=== PATIENT | male | born 1950 | race Caucasian/White ===

== ENCOUNTER 2020-10-17 08:19 | Outpatient (CLI) | payer OTHER, SELFPAY ==
[2020-10-17 13:19] LABS: Hemoglobin A1C 6.1 % (<5.7)
[2020-10-17 13:33] LABS: Creatinine Urine 114.4 mg/dL
[2020-10-17 13:37] LABS: MALB Creatinine Ratio < 5.2 mg/g (0-30); Microalbumin Urine Random < 6.0 mg/L (0-16.7)
== END 2020-10-17 08:20 | disposition home or self-care (01) ==
PROVIDERS: PCP Emergency Medicine; Visit Provider Emergency Medicine
DX: E11.9 Type 2 diabetes mellitus without complications (principal)
CPT/HCPCS: 36415; 82043; 83036

== ENCOUNTER 2023-03-24 03:07 | Day surgery (SDC) | payer OTHER, SELFPAY ==
[2023-03-10 09:21] VITALS: BMI 24.4
--- NOTE | 2023-03-20 11:06 | SUR.PREOP ---
Patient called regarding upcoming procedure. Message left on patient's voicemail regarding preop instructions, appointment times, and procedure prep.
[2023-03-24 06:49] VITALS: BP 126/72; PULSE 76; RESP 20; TEMP 35.9; O2SAT 98; BMI 25.0
[2023-03-24] MEDS: LACTATED RINGERS 1,000 ML 150 ML IV CONT (07:00)
[2023-03-24 07:07] LABS: Glucose Point of Care 122 mg/dl (65-105)
--- NOTE | 2023-03-24 08:02 | WPDANESEPPF ---
Anes - Initial Pre Proc Eval Procedure: Operation Date: 03/24/23 08:00 Proposed Procedures p Screening Colonoscopy - Trey Ocampo MD Date/Time: 03/24/23 08:02 Surgeon: Trey Ocampo MD Pre Op Diagnosis: neoplasm screening Patient Data Age: 73 Gender: M Height: 1.8 m Weight: 81.6 kg Last Vital Signs Temp 96.6 F L 03/24/23 06:49 Pulse 76 03/24/23 06:49 Resp 20 03/24/23 06:49 BP 126/72 03/24/23 06:49 Pulse Ox 98 03/24/23 06:49 O2 Del Method Room Air 03/24/23 06:49 Allergies Allergy/AdvReac Type Severity Reaction Status Date / Time No Known Allergies Allergy Verified 03/24/23 06:47 Home Medications Medication Instructions Recorded Confirmed Type ascorbic acid (vitamin C) 1,000 mg 1 gm PO DAILY 04/19/19 03/10/23 History tablet niacin 1,000 mg tablet,extended See Rx Instructions .Route .COMPLEX 04/19/19 03/10/23 History release omega-3 fatty acids 1,000 mg 1,000 mg PO DAILY 04/19/19 03/10/23 History capsule (Fish Oil Concentrate) allopurinol 300 mg tablet See Rx Instructions .Route 01/08/23 03/10/23 Rx .COMPLEX #90 tabs glipizide 2.5 mg tablet, extended See Rx Instructions .Route 01/08/23 03/10/23 Rx release 24 hr .COMPLEX #90 tabs tamsulosin 0.4 mg capsule See Rx Instructions .Route 01/08/23 03/10/23 Rx .COMPLEX #90 caps pantoprazole 40 mg tablet,delayed 40 mg PO DAILY #90 tabs 03/04/23 03/10/23 Rx release (Protonix) finasteride 5 mg tablet 5 mg PO DAILY 03/10/23 03/10/23 History multivit with minerals-iron 18 1 tablet PO DAILY 03/10/23 03/10/23 History mg-folic ac 400 mcg-vit K 25 mcg tablet (Adults Multivitamin) Laboratory Tests 03/24/23 07:03 POC Capillary Glucose 122 H mg/dl (65-105) Patient hx anesthesia problems: none Family hx anesthesia problems: none Results Review: All pre-operative results and documents have been reviewed as part of the pre-operative evaluation. [facility] Past Medical History Medical History HLD (hyperlipidemia) Skin lesion Type 2 diabetes mellitus without complications Family History Family History Mother Family history of primary malignant neoplasm of liver, Onset Age: 79 Social History Social History Smoking status: Never smoker Alcohol intake: current Alcohol use details: rare Substance use: never Substance use type: does not use Lack of Transportation: No Lack of Food: Never True Current Housing: I Have Housing Concerned About Future Housing: No Difficulty Paying Gas/Electric Bills: No Difficulty Paying for Meds: No Currently Unemployed: No Education: Bachelor's Degree Difficulty w/ Childcare or Family Care: No Living arrangements: with family Spiritual care concerns: No Anes - Eval Final PreProcedure Day of Procedure 03/24/23 08:02 Patient weight: normal Heart: regular rate and rhythm Lungs: clear to auscultation Airway: Mallampati scale class II Neurological: alert and oriented Last oral intake: >/= 8 hours ASA classification: II Emergent: no Anesthetic plan: proceed Anesthesia type and monitoring: general GIVS and standard monitoring Results Review: All pre-operative results and documents have been reviewed as part of the pre-operative evaluation. Informed Consent: The patient's anesthetic plan and its attendant risks and benefits were discussed with the patient/family/POA. Questions were solicited and answers provided to the satisfaction of the patient/family/POA.
--- NOTE | 2023-03-24 08:23 | PM.HPGS ---
History of Present Illness History of Present Illness Consent: Risks, benefits, and alternatives have been discussed and questions answered. Patient agrees to proceed with procedure. Chief complaint: neoplasm screening Narrative: Willis Newberry is a 73 year old male Presents for screening colonoscopy. Patient's current weight appetite and bowel movements are normal. Patient denies abdominal pain. He has had no bleeding. Family history noncontributory. Previous colonoscopy 10 or 11 years ago was unremarkable. Review of Systems Review of Systems: Review of systems noncontributory. [facility] Past Medical History Medical History HLD (hyperlipidemia) Skin lesion Type 2 diabetes mellitus without complications Family History Family History Mother Family history of primary malignant neoplasm of liver, Onset Age: 79 Social History Social History Smoking status: Never smoker Alcohol intake: current Alcohol use details: rare Substance use: never Substance use type: does not use Lack of Transportation: No Lack of Food: Never True Current Housing: I Have Housing Concerned About Future Housing: No Difficulty Paying Gas/Electric Bills: No Difficulty Paying for Meds: No Currently Unemployed: No Education: Bachelor's Degree Difficulty w/ Childcare or Family Care: No Living arrangements: with family Spiritual care concerns: No Meds Home Medications and Allergies Home Medications Medication Instructions Recorded Confirmed Type ascorbic acid (vitamin C) 1,000 mg 1 gm PO DAILY 04/19/19 03/10/23 History tablet niacin 1,000 mg tablet,extended See Rx Instructions .Route .COMPLEX 04/19/19 03/10/23 History release omega-3 fatty acids 1,000 mg 1,000 mg PO DAILY 04/19/19 03/10/23 History capsule (Fish Oil Concentrate) allopurinol 300 mg tablet See Rx Instructions .Route 01/08/23 03/10/23 Rx .COMPLEX #90 tabs glipizide 2.5 mg tablet, extended See Rx Instructions .Route 01/08/23 03/10/23 Rx release 24 hr .COMPLEX #90 tabs tamsulosin 0.4 mg capsule See Rx Instructions .Route 01/08/23 03/10/23 Rx .COMPLEX #90 caps pantoprazole 40 mg tablet,delayed 40 mg PO DAILY #90 tabs 03/04/23 03/10/23 Rx release (Protonix) finasteride 5 mg tablet 5 mg PO DAILY 03/10/23 03/10/23 History multivit with minerals-iron 18 1 tablet PO DAILY 03/10/23 03/10/23 History mg-folic ac 400 mcg-vit K 25 mcg tablet (Adults Multivitamin) Allergies Allergy/AdvReac Type Severity Reaction Status Date / Time No Known Allergies Allergy Verified 03/24/23 06:47 Vital Signs Vital Signs - 24 hr 03/24/23 06:49 Temperature 96.6 F L Pulse Rate 76 Respiratory Rate 20 Blood Pressure 126/72 Pulse Oximetry 98 Oxygen Delivery Room Air Exam Narrative: Physical exam reveals patient to be alert. Vital signs stable. HEENT exam is unremarkable. Patient is anicteric. Lungs are clear to auscultation and percussion. Heart is without murmur or extra sounds. Abdomen bowel sounds are present soft nontender with no organomegaly. Digital external rectal exam normal. Assessment and Plan Assessment and plan (1) Encounter for screening colonoscopy: Code(s): Z12.11 - Encounter for screening for malignant neoplasm of colon Status: Acute Assessment and Plan: Patient appears at average risk for colon polyps. Plan for screening colonoscopy today and consider this a 10 year intervals.
[2023-03-24 09:00] VITALS: BP 126/86; PULSE 71; RESP 20; O2SAT 97
[2023-03-24 09:10] VITALS: BP 112/63; PULSE 64; RESP 14; O2SAT 96
[2023-03-24 09:20] VITALS: BP 116/69; PULSE 68; RESP 16; O2SAT 96
== END 2023-03-24 09:27 | disposition home or self-care (01) ==
PROVIDERS: PCP Emergency Medicine; Visit Provider Internal Medicine Gastroenterology
PROC: 0DJD8ZZ Inspection of Lower Intestinal Tract, Via Natural or Artificial Opening Endoscopic (ICD-10-PCS; CPT 45378; principal; 2023-03-24 08:00)
DX: Z12.11 Encounter for screening for malignant neoplasm of colon (principal); D12.3 Benign neoplasm of transverse colon; K64.8 Other hemorrhoids; K57.30 Diverticulosis of large intestine without perforation or abscess without bleeding; E78.5 Hyperlipidemia, unspecified; E11.9 Type 2 diabetes mellitus without complications; Z79.84 Long term (current) use of oral hypoglycemic drugs; Z80.0 Family history of malignant neoplasm of digestive organs
CPT/HCPCS: 45385; 82948; 88305; J2704; J7120

== ENCOUNTER 2024-09-23 20:26 | Emergency (ER) | payer OTHER, SELFPAY ==
--- NOTE | ~2024-09-23 | XR_ITS ---
EXAMINATION: XR chest 1V Exam Date/Time: 09/23/2024 20:54 CDT HISTORY: weakness Comparison: None. RESULT: Lines, tubes, and devices: None. Lungs and pleura: Clear. Cardiomediastinal silhouette: Unremarkable. Other: No acute osseous or upper abdominal finding. IMPRESSION: No acute cardiopulmonary process. Reviewed, dictated and finalized at location K.
--- NOTE | ~2024-09-23 | CT_ITS ---
EXAMINATION: CT abdomen pelvis w con DATE: 09/24/2024 03:16 INDICATION: Nausea. Leukocytosis. TECHNIQUE: Computed tomography (CT) of the abdomen and pelvis was performed with 100 mL Omnipaque-350 intravenous contrast. Automated exposure control and iterative reconstruction technique were employe d. The dose-length product was 406.70 mGy-cm. COMPARISON: None FINDINGS: Mild dependent atelectasis in bilateral lower lobes. Heart size is normal. No pericardial or pleural effusion. Small sliding-type hiatal hernia. Diffuse hepatic steatosis. Multiple gallstones in the dep endent aspect of the normal-appearing gallbladder with no wall thickening or pericholecystic strandin g to suggest acute cholecystitis. Spleen and bilateral adrenal glands are normal. 9 mm cystic lesion at the head of the pancreas. There is mild dilation of the main pancreatic duct with no peripancreati c stranding to suggest acute pancreatitis. There are multiple bilateral renal cysts measuring up to 4 .1 cm the left kidney. There is a high attenuation lesion at the right kidney which is equivocal for hyperdense complex proteinaceous/hemorrhagic cyst versus enhancing solid neoplasm. Moderate diverticu losis along the descending and sigmoid colon without adjacent from trace stranding to suggest diverti culitis. There is also a duodenal diverticulum posterior to the junction of the second and third port ions of the duodenum. No bowel obstruction. Normal appendix. Bladder is normal. Prostatomegaly. Bilat eral small fat-containing inguinal hernias. Mild degenerative changes in the spine and pelvis. IMPRESSION: 1. Cholelithiasis. 2. Mild dilation of the main pancreatic duct which could represent sequela of chronic pancreatitis. N o peripancreatic inflammatory stranding to suggest acute appendicitis but would correlate with lipase levels. 3. 9 mm cystic lesion at the head of the pancreas. The differential diagnosis includes pseudocyst, in traductal papillary mucinous neoplasm (IPMN), mucinous cystic neoplasm (MCN), and the less common ser ous cystadenoma and neuroendocrine tumor. 4. 4.1 cm soft tissue density right renal lesion which could represent a complex proteinaceous/hemorr hagic cyst or enhancing neoplasm. Recommend further evaluation with pre and postcontrast MRI or CT. 5. Small sliding-type hiatal hernia. 6. Diverticulosis. 7. Prostatomegaly. 8. Small bilateral fat-containing hernias. Reviewed, dictated and finalized at location A. IMPRESSION: 1. Cholelithiasis. 2. Mild dilation of the main pancreatic duct which could represent sequela of c hronic pancreatitis. No peripancreatic inflammatory stranding to suggest acute appendicitis but would correlate with lipase levels. 3. 9 mm cystic lesion at the head of the pancreas. The differential diagnosis i ncludes pseudocyst, intraductal papillary mucinous neoplasm (IPMN), mucinous cy stic neoplasm (MCN), and the less common serous cystadenoma and neuroendocrine tumor. 4. 4.1 cm soft tissue density right renal lesion which could represent a comple x proteinaceous/hemorrhagic cyst or enhancing neoplasm. Recommend further evalu ation with pre and postcontrast MRI or CT. 5. Small sliding-type hiatal hernia. 6. Diverticulosis. 7. Prostatomegaly. 8. Small bilateral fat-containing hernias.
[2024-09-23 20:27] VITALS: BP 171/72; PULSE 69; RESP 12; TEMP 36.4; O2SAT 99
--- OUTSIDE RECORDS SUMMARY | 2024-09-23 20:27 | XMS_ITS | Referral Summary ---
Author Organization [facility] Address [address] [place] [id number] Care Team Providers Care Staff Reporter Name Role Phone Paul Mcnulty MD Primary Care Provide r Encounters Date Type Department Care Team Description 07/21/2024 2:20 PM CDT Office Visit [facility] Surgery [address] [place] [address] [address] [place] [address] Fawad Bah MD BPH with obstruction/lower urinary tract symptoms (Primary Dx); Elevated PSA 07/20/2024 10:05 AM CDT Lab [facility] Lab [address] [place] [address] Elevated PSA 07/19/[address] [facility] Surgery [address] [place] [address] [place] [phone] Villalobos, Sharonda, RMA from Last 3 Months Allergies No known active allergies Medications allopurinoL (ZYLOPRIM) 300 mg tablet Take 1 tablet (300 mg total) by mouth daily 01/19/2023 Active glipiZIDE XL (GLUCOTROL XL) 2.5 mg 24 hr tablet Take 1 tablet (2.5 mg total) by mouth nightly 01/19/[address] (PROTONIX) 40 mg EC tablet Take 1 tablet (40 mg total) by mouth daily 03/04/2023 Active ketoconazole (NIZORAL) 2 % shampoo APPLY TO SCALP 3 TIMES A WEEK 09/25/2023 Active omega-3 fatty acids-fish oil 300-1,000 mg capsule Take 1 capsule (1 g total) by mouth daily Active niacin 1,000 mg tablet extended release Take by mouth nightly Active cholecalciferol (VITAMIN D-3) 2000 unit tablet Take 1 tablet (2,000 Units total) by mouth daily Active ascorbic acid (vitamin C) 1,000 mg tablet Take 1 tablet (1,000 mg total) by mouth daily Active multivitamin with iron tablet Take 1 tablet by mouth daily Active Active Problems Problem Noted Date Diagnosed Date BPH with obstruction/lower urinary tract symptom s 11/25/2023 Elevated PSA 10/15/2023 Abdominal pain 03/17/2023 Social History Tobacco Use Types Packs/Day Years Used Date Smoking Tobacco: Never Passive Smoke Exposure: Never Smokeless Tobacco: Never Tobacco Cessation:Counseling Given: Not Answered [facility] [employer] Answer Date Recorded In the past 12 months has e [employer], gas, oil, or water [employer] threatened to shut off services in your home? No 12/24/2023 Social Connection and Isolat ion Panel [NHANES] Answer Date Recorded In a typical week, how many times do you talk on the phone with family, friends, or neighbors? More than three times a week 12/24/2023 How often do you get togethe r with friends or relatives? More than three times a week 12/24/2023 How often do you attend [facility] or mu-ism services? Never 12/24/2023 Do you belong to any clubs o r organizations such as baptism groups, unions, fraternal or athletic groups, or school groups? No 12/24/2023 How often do you attend meet ings of the clubs or organizations you belong to? Never 12/24/2023 Are you , , di vorced, , never , or living with a partner? 12/24/2023 AUDIT-C Answer Date Recorded Q1: How often do you have a drink containing alcohol? Never 12/09/2023 Q2: How many drinks containi ng alcohol do you have on a typical day when you are drinking? Patient does not drink Q3: How often do you have si x or more drinks on one occasion? Never 12/09/2023 Overall Financial Resource Strain (CARDIA) Answe r Date Recorded How hard is it for you to pa y for the very basics like food, housing, medical care, and heating? Not hard at all 12/24/2023 Hunger Vital Sign Answer Date Recorded Within the past 12 months, y ou worried that your food would run out before you got the money to buy more. Never true 12/24/19 24 Within the past 12 months, t he food you bought just didn't last and you didn't have money to get more. Never true 12/24/2023 PRAPARE - Transportation Answer Date Re corded In the past 12 months, has l ack of transportation kept you from medical appointments or from getting medications? No 08/2023 In the past 12 months, has l ack of transportation kept you from meetings, work, or from getting things needed for daily living? No 12/24/2023 Housing Stability Vital Sign Answer Steven e Recorded In the last 12 months, was t here a time when you were not able to pay the mortgage or rent on time? No 12/24/2023 In the past 12 months, how m any times have you moved where you were living? 0 12/24/2023 At any time in the past 12 m [facility], were you homeless or living in a detention (including now)? No 12/24/2023 Personal Safety Answer Date Recorded Have you ever been in or are you currently in a harmful physical or emotional relationship or is someone making you feel afraid or unsafe? 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 Gender Identity Not on file Sexual Orientation Not on file Last Filed Vital Signs Vital Sign Reading Time Taken Comments Blood Pressure 130/76 12/24/2023 11:48 AM CDT Pulse 80 12/24/2023 11:48 AM CDT Temperature 36.9 C (98.4 F) 12/24/2023 11:48 AM CDT Respiratory Rate 20 12/24/2023 11:48 AM CDT Oxygen Saturation 95% 12/24/2023 11:48 AM CDT Inhaled Oxygen Concentration - - Weight 79.4 kg (175 lb) 01/21/2024 11:07 AM CDT Height 180.3 cm (5' 11) 01/21/2024 11:07 AM CDT Body Mass Index 24.41 01/21/2024 11:07 AM CDT Plan of Treatment Not on file Procedures Procedure Name Priority Date/Time Associated Diagnosis Comments MEASURE POST VOID RESIDUAL Routine 07/21/2024 2:10 PM CDT BPH with obstruction/lower urinary tract symptoms Elevated PSA POCT URINALYSIS DIPSTICK Routine 07/21/2024 2:09 PM CDT BPH with obstruction/lower urinary tract symptoms Elevated PSA PSA DIAGNOSTIC Routine 07/20/2024 10:26 AM CDT Elevated PSA from Last 3 Months Results * Measure post void residual (07/21/2024 2:10 PM CDT) Narrative Fadia Huizar, [facility] - 07/21/2024 2:10 PM CDT Measurement of Post Void Residual urine and/or bladder capacity PVR = 7 ml us Fawad Bah MD NURSING ASSESSMENTS Final Result * POCT urinalysis dipstick (07/21/2024 2:09 PM CDT) Color, Urine, POC Yellow Clarity, ur, POC Clear Clear Glucose, ur, POC Negative Negative MG/DL Bilirubin, ur, POC Negative Negative, Small, Moderate, Large Ketones, ur, POC Negative Negative Specific [place], POC 1.030 1.003 - 1.030 Blood, ur, POC Negative Negative pH, ur, POC 5.5 5.0 - 8.0 Protein, ur, POC Negative Negative Urobilinogen, urine, POC 0.2 0.2 - 1.0 mg/dL Nitrite, ur, POC Negative Negative Leukocytes, ur, POC Negative Negative Lot Number 0 Urine 07/21/2024 2:09 PM CDT us Fawad Bah MD POINT OF CARE TEST ORDERABLES Fi nal Result * PSA diagnostic (07/20/2024 10:26 AM CDT) PSA-Total 0.68 <=6.20 ng/mL Comment: Interpretive Data AGE SEX REFERENCE INTERVAL 0 minutes-150 years Female None 0 minutes-49 years Male None 50-59 years Male 0-3.90 60-69 years Male 0-5.40 70-79 years Male 0-6.20 80-150 years Male 0-6.20 The Meredith PSA Total assay procedure was used. Results from different manufacturers or methods may not be comparable. Serial testing should be performed using the same method. Current interpretive data last revised 21. Testing performed by: [facility], [address] [place] [address]., [id number] Blood 07/20/2024 10:2 6 AM CDT 07/20/2024 12:26 PM CDT us Fawad Bah MD LAB BLOOD ORDERABLES Final Resul t [address] [address] [facility] Department [place] [address] from Last 3 Months Insurance [facility] Advance Directives For more information, please contact: [phone] * Full Code (Latest Code Status on File) Date Activated Date Inactivated Comments 12/23/2023 12:19 PM 12/24/2023 7:40 PM * Full Code Date Activated Date Inactivated Comments 04/02/2023 8:52 AM 04/02/2023 2:35 PM * Full Code Date Activated Date Inactivated Comments 04/02/2023 8:52 AM 04/02/2023 8:52 AM Care Teams Staff Reporter Relationship Specialty Start Date End Date Paul Mcnulty MD [address] [place] [address] PCP - General Emergency Medicine 06/06/19
--- OUTSIDE RECORDS SUMMARY | 2024-09-23 20:27 | XMS_ITS | Clinical Summary ---
Author Organization [facility] Address [address] [place] [address] Care Team Providers Care Physical Education Aide Name Role Phone Paul Mcnulty MD Primary Care Provide r Allergies No known active allergies Medications allopurinoL [...] 11/25/2023 Elevated PSA 10/15/2023 Abdominal pain 03/17/2023 Encounters Date Type Department Care Team Description 07/21/2024 2:20 PM CDT Office Visit [facility] Surgery [address] [place] [address] [place] [phone] Fawad Bah MD BPH with obstruction/lower urinary tract symptoms (Primary Dx); Elevated PSA 07/20/2024 10:05 AM CDT Lab [facility] Lab [address] [place] [address] Elevated PSA 07/19/2024 Telephone [facility] Surgery [address] [facility] [address] [place] [address] Sharonda Villalobos RMA from Last 3 Months Surgical History Surgery Date Site/Laterality Comments COLONOSCOPY 03/20/2023 - 04/19/2023 ESOPHAGOGASTRODUODENOSCOPY 03/20/2023 - 04/19/2023 PROSTATE BIOPSY 11/20/2023 Medical History Medical History Date Comments GERD (gastroesophageal reflux disease) Gout Prediabetes Social History Tobacco Use Types Packs/Day Years Used Date Smoking Tobacco: Never Passive Smoke Exposure: Never Smokeless Tobacco: Never Tobacco Cessation:Counseling Given: Not Answered [employer] Answer Date Recorded In the past 12 months has [employer], gas, oil, or water [employer] threatened to shut off services in your [...] week 12/24/2023 How often do you attend [facility] or roman catholic services? Never 12/24/2023 Do you belong to any clubs o r organizations such as rastafari groups, unions, fraternal or athletic groups, or [...] any time in the past 12 m [facility], were you homeless or living in a skilled nursing (including now)? No 12/24/2023 Personal Safety Answer Date Recorded Have you ever been in or are you currently in a harmful physical or emotional relationship or is someone making you feel afraid or unsafe? 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 Gender Identity Not on file Sexual Orientation Not on file Obstetrics History Last Filed Vital Signs Vital Sign Reading [...] 01/21/2024 11:07 AM CDT Plan of Treatment Health Maintenance Due Date Last Done Comments Colon Cancer Screening-Colonoscopy 1950 Depression Screening 1950 Hepatitis C Screening 1950 DTaP/Tdap/Td Vaccine (1 - Tdap) 1962 Hepatitis B Screening 1969 Pneumococcal vaccine 65+ (1 of 1 - PCV) 2001 Well Visit 65+ 01/24/2016 Zoster Vaccine (2 of 2) 02/28/2020 01/03/2020 Covid-19 Vaccine (2023-2 5 season) 2023 05/02/2022, 07/28/2021, 03/04/2021, Additional history exists Influenza Vaccine (Season Ended) 2024 Fall Risk Assessment 12/22/2024 12/23/2023 Prostate Cancer Screening-PSA Discontinued , 08/05/2023, 03/05/2023, Additional history exists Procedures Procedure Name Priority Date/Time Associated Diagnosis [...] post void residual (07/21/2024 2:10 PM CDT) Fadia Baez, A - 07/21/2024 2:10 PM CDT Measurement of Post Void Residual urine and/or bladder capacity PVR = 7 ml Fawad Bah MD NURSING ASSESSMENTS Final Result * POCT urinalysis dipstick (07/21/2024 2:09 PM CDT) Color, Urine, POC Yellow Clarity, ur, POC Clear Clear Glucose, ur, POC Negative Negative MG/DL Bilirubin, ur, POC Negative Negative, Small, Moderate, Large Ketones, ur, POC Negative Negative Specific [place], POC 1.030 1.003 - 1.030 Blood, ur, POC Negative Negative pH, ur, POC 5.5 5.0 - 8.0 Protein, ur, POC Negative Negative Urobilinogen, urine, POC 0.2 0.2 - 1.0 mg/dL Nitrite, ur, POC Negative Negative Leukocytes, ur, POC Negative Negative Lot Number 0 Urine 07/21/2024 2:09 PM CDT Fawad Bah MD POINT OF CARE TEST [...] data last revised 21. Testing performed by: [facility], [address] [place] [address]., [id number] Blood 07/20/2024 10:2 6 AM CDT 07/20/2024 12:26 PM CDT us Fawad Bah MD LAB BLOOD ORDERABLES Final Resul t [address] [address] [facility] Department [place] [address] from Last 3 Months Insurance [facility] Advance Directives For more information, please contact: [phone] * Full Code (Latest Code Status on File) Date Activated Date Inactivated Comments 12/23/2023 12:19 PM 12/24/2023 7:40 PM * Full Code Date Activated Date Inactivated Comments 04/02/2023 8:52 AM 04/02/2023 2:35 PM * Full Code Date Activated Date Inactivated Comments 04/02/2023 8:52 AM 04/02/2023 8:52 AM Care Teams Physical Education Aide Relationship Specialty Start Date End Date Paul Mcnulty MD [address] [place] [address] PCP - General Emergency Medicine 06/06/19
--- NOTE | 2024-09-23 20:29 | ECG_ITS ---
Test Date: 2024-09-23 20:35:04 Measurements Intervals [place] Rate: 65 P: 61 TX: 184 QRS: 42 QRSD: 85 T: 42 QT: 431 QTc: 450 Interpretive Statements SINUS RHYTHM BASELINE ARTIFACT- I, II, III, AVR, AVL, AVF NORMAL ECG No previous ECG available for comparison Electronically Signed On 09-24-2024 06:16:28 CDT by Eliud Savage D.O.
[2024-09-23 20:41] LABS: Basophils Absolute Auto 0.1 K/mm3 (0.0-0.1); Basophils Percent Auto 0.5 % (0.2-1.2); Hematocrit 46.1 % (42.0-52.0); Hemoglobin 14.9 g/dL (14.0-18.0); Immature Granulocyte Absolute 0.09 K/mm3 (0.00-0.031); Immature Granulocyte Percent A 0.6 % (0-0.5); Lymphocytes Absolute Auto 2.21 K/mm3 (0.9-3.2); Lymphocytes Percent Auto 15.2 % (18.3-44.2); Mean Corpuscular HGB Conc 32.3 g/dl (32-36); Mean Corpuscular Hemoglobin 27.6 pg (26-34); Mean Corpuscular Volume 85.5 fl (80-100); Mean Platelet Volume 9.1 fl (7.4-10.4); Monocytes Absolute Auto 0.5 K/mm3 (0.1-0.6); Monocytes Percent Auto 3.5 % (2.6-8.5); Neutrophils Absolute Auto 11.7 K/mm3 (1.3-6.7); Neutrophils Percent Auto 80.2 % (45.5-73.1); Platelet Count Result 336 k/mm3 (150-375); Red Blood Count 5.39 M/mm3 (4.6-6.20); Red Cell Distribution Width 13.7 % (11.5-14.5); White Blood Count 14.6 K/mm3 (4.5-10.0)
[2024-09-23 20:52] LABS: INR 1.1; Prothrombin Time 13.9 Seconds (11.1-14.7)
[2024-09-23 20:53] LABS: Partial Thromboplastin Time 27.6 Seconds (22.3-36.8)
[2024-09-23 20:56] LABS: Alanine Aminotransferase 34 U/L (6-50); Albumin Level 4.3 g/dL (3.5-5.1); Alkaline Phosphatase 103 U/L (38-126); Anion Gap 12 mmol/L (4-12); Aspartate Amino Transferase 35 U/L (17-59); Bilirubin,Total 1.1 mg/dL (0.2-1.3); Blood Urea Nitrogen 18 mg/dL (9-20); Calcium 9.7 mg/dL (8.4-10.2); Carbon Dioxide 21 mmol/L (22-30); Chloride 105 mmol/L (98-107); Estimated CRCL calculation 55 ml/min; Estimated Glomerular Filt Rate > 60; Glucose 186 mg/dL (65-110); Potassium 4.2 mmol/L (3.4-5.0); Sodium 138 mmol/L (137-145); Total Protein 7.7 g/dL (6.3-8.2)
[2024-09-23 22:16] VITALS: BP 172/85; PULSE 73; RESP 16; TEMP 36.6; O2SAT 100
--- OUTSIDE RECORDS SUMMARY | 2024-09-24 00:25 | XMS_ITS | Clinical Summary ---
Author Organization [facility] Address [address] [place] [address] Care Team Providers Care Retail Security Professional Name Role Phone Paul Mcnulty MD Primary [...] Description 07/21/2024 2:20 PM CDT Office Visit [facility] [address] [place] [address] [place] [address] [phone] Fawad Bah MD BPH with obstruction/lower urinary tract symptoms (Primary Dx); Elevated PSA 07/20/2024 10:05 AM CDT Lab [facility] Lab [address] [place] [address] Elevated PSA 07/19/2024 Telephone [facility] [address] [facility] [address] [place] [address] Sharonda Villalobos RMA from Last 3 Months Surgical History Surgery Date Site/Laterality Comments COLONOSCOPY 03/20/2023 - 04/19/2023 ESOPHAGOGASTRODUODENOSCOPY 03/20/2023 - 04/19/2023 PROSTATE BIOPSY 11/20/2023 Medical History Medical History Date Comments GERD (gastroesophageal reflux disease) Gout Prediabetes Social History Tobacco Use Types Packs/Day Years Used Date Smoking Tobacco: Never Passive Smoke Exposure: Never Smokeless Tobacco: Never Tobacco Cessation:Counseling Given: Not Answered [employer] Utilities Answer Date Recorded In the past 12 months has [employer], gas, oil, or water [employer] threatened to shut off services in your [...] week 12/24/2023 How often do you attend [facility] or hoahaoism services? Never 12/24/2023 Do you belong to any clubs o r organizations such as gnosticist groups, unions, fraternal or athletic groups, or [...] any time in the past 12 m [facility], were you homeless or living in a fpc (including now)? No 12/24/2023 Personal Safety Answer Date Recorded Have you ever been in or are you currently in a harmful physical or emotional relationship or is someone making you feel afraid or unsafe? 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 Testing performed by: [facility], [address] [place] [address]., [id number] Blood 07/20/2024 10:2 6 AM CDT 07/20/2024 12:26 PM CDT us Fawad Bah MD LAB BLOOD ORDERABLES Final Resul t [facility] [address] [facility] [place] [address] from Last 3 Months Insurance [facility] Advance Directives For more information, please contact: [phone] * Full Code (Latest Code Status on File) Date Activated Date Inactivated Comments 12/23/2023 12:19 PM 12/24/2023 7:40 PM * Full Code Date Activated Date Inactivated Comments 04/02/2023 8:52 AM 04/02/2023 2:35 PM * Full Code Date Activated Date Inactivated Comments 04/02/2023 8:52 AM 04/02/2023 8:52 AM Care Teams Retail Security Professional Relationship Specialty Start Date End Date Paul Mcnulty MD [address] [place] [address] PCP - General Emergency Medicine 06/06/19
--- OUTSIDE RECORDS SUMMARY | 2024-09-24 00:25 | XMS_ITS | Referral Summary ---
Author Organization [facility] Address [address] [place] [phone] Care Team Providers Care Cantilever Crane Operator Name Role Phone Paul Mcnulty MD Primary Care Provide r Encounters Date Type Department Care Team Description 07/21/2024 2:20 PM CDT Office Visit [facility] Surgery [address] [place] [address] [address] [place] [phone] Fawad Bah MD BPH with obstruction/lower urinary tract symptoms (Primary Dx); Elevated PSA 07/20/2024 10:05 AM CDT Lab [facility] Lab [address] [place] [address] Elevated PSA 07/19/[address] [facility] Surgery [address] [place] [address] [place] [phone] Villalobos, Sharonda, RMA from Last 3 [...] Tobacco: Never Tobacco Cessation:Counseling Given: Not Answered [facility] [employer] Answer Date Recorded In the past 12 months has e [employer], gas, oil, or water [employer] threatened to shut off services in your [...] week 12/24/2023 How often do you attend [facility] or yarsani services? Never 12/24/2023 Do you belong to any clubs o r organizations such as druze groups, unions, fraternal or athletic groups, or [...] any time in the past 12 m [facility], were you homeless or living in a half-way (including now)? No 12/24/2023 Personal Safety Answer Date Recorded Have you ever been in or are you currently in a harmful physical or emotional relationship or is someone making you feel afraid or unsafe? 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 Gender Identity Not on file Sexual Orientation [...] (07/21/2024 2:10 PM CDT) Narrative Fadia Huizar, [facility] - 07/21/2024 2:10 PM CDT Measurement of Post Void Residual urine and/or bladder capacity PVR = 7 ml us Fawad Bah MD NURSING ASSESSMENTS Final Result * POCT urinalysis dipstick (07/21/2024 2:09 PM CDT) Color, Urine, POC Yellow Clarity, ur, POC Clear Clear Glucose, ur, POC Negative Negative MG/DL Bilirubin, ur, POC Negative Negative, Small, Moderate, Large Ketones, ur, POC Negative Negative Specific [place], POC 1.030 1.003 - 1.030 Blood, ur, [...] data last revised 21. Testing performed by: [facility], [address] [place] [address]., [id number] Blood 07/20/2024 10:2 6 AM CDT 07/20/2024 12:26 PM CDT us Fawad Bah MD LAB BLOOD ORDERABLES Final Resul t [facility] [address] [facility] Department [place] [address] from Last 3 Months Insurance [facility] Advance Directives For more information, please contact: [phone] * Full Code (Latest Code Status on File) Date Activated Date Inactivated Comments 12/23/2023 12:19 PM 12/24/2023 7:40 PM * Full Code Date Activated Date Inactivated Comments 04/02/2023 8:52 AM 04/02/2023 2:35 PM * Full Code Date Activated Date Inactivated Comments 04/02/2023 8:52 AM 04/02/2023 8:52 AM Care Teams Cantilever Crane Operator Relationship Specialty Start Date End Date Paul Mcnulty MD [address] [place] [address] PCP - General Emergency Medicine 06/06/19
--- NOTE | 2024-09-24 01:02 | PC.NURSE ---
This RN had been told that the PA Student with Natalie was told by the pt that he wanted a DR not a PA to evaluate him, so Natalie removed her sign up on the patient. Dr. Randall aware and will see patient whenever he is available.
--- NOTE | 2024-09-24 01:17 | PC.NURSE ---
pt to this rn i was told i would be given fluids and zofran. This RN asked the patient if he wants to see a PA or an MD and explained that the MD was very busy with critical patients and it would be a while until he could make it in. Pt verbalized that he only wants an md to Evaluate and oversee whatever findings the PA finds. Natalie [place].
[2024-09-24 01:57] VITALS: PULSE 85; RESP 21; O2SAT 98
[2024-09-24] MEDS: LACTATED RINGERS 1,000 ML 999 ML IV CONT ×2 (02:43)
[2024-09-24] MEDS: ONDANSETRON INJ 4 MG/2 ML VIAL IV PUSH (02:43)
--- NOTE | 2024-09-24 02:49 | ED.NAVMDI ---
HPI - Nausea/Vomiting/Diarrhea General Chief complaint: Altered Mental Status Stated complaint: vomiting, nausea, disorientation Time Seen by Provider: 09/23/24 23:49 History of Present Illness HPI Narrative: 74-year-old male with a past medical history including type 2 diabetes, benign prostatic hyperplasia, GERD, gout. Patient presents to the emergency department with complaints of weakness, dehydration, dizziness, nausea and vomiting and abdominal distension. Patient states that he feels like it all could be related to recent medication that he was on including doxycycline that he was prescribed a 10 day course for recent spider bite. He states the bite is completely resolved but he is concerned that the medication could be causing his symptoms. He states that he feels dehydrated and thirsty. Otherwise no recent medication changes, injuries or infections. Denies any abdominal pain, headache, vision changes, chest pain, shortness a breath. He states he feels dizzy and dehydrated. No urinary complaints or diarrhea. Related Data Home Medications ?Medication ?Instructions ?Recorded ?Confirmed ?Last Taken ?Type ascorbic acid (vitamin C) 1,000 mg 1 gm PO DAILY 04/19/19 07/26/24 03/23/23 History tablet niacin 1,000 mg tablet,extended See Rx Instructions .Route .COMPLEX 04/19/19 07/26/24 03/23/23 History release omega-3 fatty acids 1,000 mg 1,000 mg PO DAILY 04/19/19 07/26/24 03/23/23 History capsule (Fish Oil Concentrate) multivit with minerals-iron 18 1 tablet PO DAILY 03/10/23 07/26/24 03/23/23 History mg-folic ac 400 mcg-vit K 25 mcg tablet (Adults Multivitamin) Allergies Allergy/AdvReac Type Severity Reaction Status Date / Time No Known Allergies Allergy Verified 07/26/24 12:51 Review of Systems Review of Systems: As reviewed [facility]PI [facility] Past Medical History Medical History Fatigue Vitamin D deficiency Skin lesion of face Gout, unspecified Gastro-esophageal reflux disease without esophagitis Tinnitus Type 2 diabetes mellitus without complications Exposure to COVID-19 virus Skin lesion HLD (hyperlipidemia) Family History Family History Mother Family history of primary malignant neoplasm of liver, Onset Age: 79 Social History Social History Smoking status: Never smoker Alcohol intake: former Substance use: never Substance use type: does not use Current Housing: Decline to Answer Concerned About Future Housing: Decline to Answer Difficulty Paying Gas/Electric Bills: Decline to Answer Difficulty Paying for Meds: Decline to Answer Currently Unemployed: Decline to Answer Education: Decline to Answer Difficulty w/ Childcare or Family Care: Decline to Answer Living arrangements: with family Spiritual care concerns: No Exam Narrative: GENERAL: [Well-appearing, well-nourished, and in no acute distress.] HEAD: [Normocephalic, atraumatic.] EYES: [PERRLA and EOMI.] ENT: Nares clear, no rhinorrhea or epistaxis. Mucous membranes dry. NECK: Supple. CHEST: [Clear to auscultation. No respiratory distress.] HEART: [Regular rate and rhythm]. No murmur heard. [Normal peripheral pulses.] ABDOMEN: [Soft, nondistended], [nontender], [No rigidity or guarding] EXTREMITIES: Normal range of motion. [No edema.] SKIN: Warm, dry, no rash. NEURO: [No focal deficits]. Alert and oriented [x3.] PSYCH: [Normal mood and affect.] Course Vital Signs Vital signs: Vital Signs Temperature 36.4 C 09/23/24 20:27 Pulse Rate 69 09/23/24 20:27 Respiratory Rate 12 09/23/24 20:27 Blood Pressure 171/72 H 09/23/24 20:27 Pulse Oximetry 99 09/23/24 20:27 Temperature 36.6 C 09/24/24 05:24 Pulse Rate 83 09/24/24 05:24 Respiratory Rate 16 09/24/24 05:24 Blood Pressure 146/78 H 09/24/24 05:24 Pulse Oximetry 98 09/24/24 05:24 MDM - Nausea/Vomiting/Diarrhea MDM Narrative Medical decision making narrative: 74-year-old male with history of gout, BPH, type 2 diabetes, hyperlipidemia. Patient presents to the emergency department with complaints of feeling dehydrated and dizzy as well as having some abdominal bloating and nausea with vomiting. Denies any abdominal pain and has a soft nontender nondistended abdomen. He is mildly hypertensive here but not severe range. No tachypnea, tachycardia, hypoxia fever. He is well-appearing overall and not any distress. Does appear slightly dehydrated with dry mucous membranes otherwise unremarkable exam. Suspicion presently is for potential gastroenteritis, side effect of doxycycline treatment recently, electrolyte imbalances, low suspicion intra-abdominal infection such as appendicitis, diverticulitis, colitis, cholecystitis. Basic laboratory studies were drawn including CBC, CMP, lipase and urinalysis. EKG was obtained chest x-ray ordered.. He was given fluid boluses, Zofran Toradol and re-evaluated. CT scan with IV contrast of the abdomen pelvis for further delineation was ordered after he had a workup that shows a leukocytosis of 14.6 raising suspicion for potential infectious process but could also be a component of hemoconcentration or reactive from vomiting. He has not had any nauseousness or vomiting since his arrival to the emergency department which is reassuring. CT imaging revealed a right 4 cm indeterminate lesion on the kidney which on my interpretation could be potential cystic structure versus mass versus soft tissue attenuation. Possible cystitis also seen but otherwise unremarkable CT abdomen with no acute findings. I discussed these findings with the patient including need for follow-up regarding the kidney lesion but likely not the source of his symptoms. Discussed cystitis with him including inflammation versus infection but he has no urinary symptoms at all, no fever, all his symptoms have resolved and he feels better after fluids. Does not need any empiric antibiotics at this time especially with a negative urinalysis and no symptoms. Patient was given strict return precautions and will send home with [place]. Patient's questions were answered and he was discharged with appropriate follow-up instructions. Medical Records Attestation: I reviewed the patient's medical records. Lab Data Attestation: I reviewed the patient's lab results. 09/23/24 20:36 09/23/24 20:36 Labs: Lab Results 09/23/24 09/24/24 Range/Units 20:36 03:14 WBC 14.6 H (4.5-10.0) K/mm3 RBC 5.39 (4.6-6.20) M/mm3 Hgb 14.9 (14.0-18.0) g/dL Hct 46.1 (42.0-52.0) % MCV 85.5 (80-100) fl MCH 27.6 (26-34) pg MCHC 32.3 (32-36) g/dl RDW 13.7 (11.5-14.5) % Plt Count 336 (150-375) k/mm3 MPV 9.1 (7.4-10.4) fl Immature Gran % (Auto) 0.6 H (0-0.5) % Neut % (Auto) 80.2 H (45.5-73.1) % Lymph % (Auto) 15.2 L (18.3-44.2) % Meagher % (Auto) 3.5 (2.6-8.5) % Eos % (Auto) 0.0 (0-4.4) % Baso % (Auto) 0.5 (0.2-1.2) % Lymph # (Auto) 2.21 (0.9-3.2) K/mm3 Meagher # (Auto) 0.5 (0.1-0.6) K/mm3 Eos # (Auto) 0.0 (0-0.3) K/mm3 Baso # (Auto) 0.1 (0.0-0.1) K/mm3 Abs Immat Gran (auto) 0.09 H (0.00-0.031) K/mm3 Absolute Neuts (auto) 11.7 H (1.3-6.7) K/mm3 Absolute Nucleated RBC 0.000 (0.0-0.012) K/mm3 Nucleated RBC % 0.0 (0.0-0.2) % PT 13.9 (11.1-14.7) Seconds INR 1.1 APTT 27.6 (22.3-36.8) Seconds Sodium 138 (137-145) mmol/L Potassium 4.2 (3.4-5.0) mmol/L Chloride 105 (98-107) mmol/L Carbon Dioxide 21 L (22-30) mmol/L Anion Gap 12 (4-12) mmol/L BUN 18 (9-20) mg/dL Creatinine 1.13 (0.7-1.3) mg/dL Estim Creat Clear Calc 55 ml/min Estimated GFR > 60 (59 - ) Glucose 186 H (65-110) mg/dL Calcium 9.7 (8.4-10.2) mg/dL Total Bilirubin 1.1 (0.2-1.3) mg/dL AST 35 (17-59) U/L ALT 34 (6-50) U/L Alkaline Phosphatase 103 (38-126) U/L Total Protein 7.7 (6.3-8.2) g/dL Albumin 4.3 (3.5-5.1) g/dL Urine Color Yellow (Yellow) Urine Appearance Clear (Clear) Urine pH 6.0 (5.0-9.0) Ur Specific [place] 1.022 (1.001-1.035) Urine Protein Trace (Negative) mg/dL Urine Glucose (UA) Negative (Negative) mg/dL Urine Ketones 1+ H (Negative) mg/dL Ur Blood (Man) Negative (Negative) Urine Nitrate Negative (Negative) Urine Bilirubin Negative (Negative) Urine Urobilinogen 0.2 (<2.0) mg/dL Leukocyte Esterase Rfl Trace H (Negative) MAGEN/UL Urine RBC 0-2 (0-2) /hpf Urine WBC 0-5 (0-3) /hpf Ur Squamous Epith Cells None seen (Few) /hpf Urine Bacteria None seen /hpf Urine Casts 0-2 Imaging Data Attestation: I personally reviewed and interpreted this imaging study as follows: My impression: Right 4 cm indeterminate kidney lesion, possible cystitis otherwise no acute findings Impressions Chest X-Ray 09/23/24 21:09 IMPRESSION: No acute cardiopulmonary process. Discharge Plan Discharge Clinical Impression: Dehydration, Nausea & vomiting, Abnormal CT scan, kidney Patient Disposition: Home Condition: Stable Instructions: Antibiotic Form, Acute Nausea and Vomiting (ED) Additional Instructions: Follow-up with your regular primary care provider regarding your CT findings of a right-sided 4 cm kidney lesion which needs either outpatient MRI or repeat CT imaging at the discretion of your PCP. Your CT also shows some inflammation of the bladder consistent with cystitis but you have no urinary symptoms or infection in your urine which is reassuring. You received hydration here and Zofran and we will send you home with a prescription for Zofran as needed for any nauseousness or vomiting. Return with any new or worsening concerns otherwise follow-up with your doctor outpatient. Patient Language: Portuguese Prescriptions: New ondansetron 4 mg tablet,disintegrating 4 mg PO Q8H PRN (Reason: nausea and vomiting) Qty: 20 0RF No Action ascorbic acid (vitamin C) 1,000 mg tablet 1 gm PO DAILY niacin 1,000 mg tablet extended release See Rx Instructions .ROUTE .COMPLEX Rx Instructions: Take 1 tablet (1000mg) by oral route everyday at bedtime omega-3 fatty acids [Fish Oil Concentrate] 1,000 mg capsule 1,000 mg PO DAILY metformin 500 mg tablet 500 mg PO DAILY Qty: 90 2RF fluticasone propionate [Flonase Allergy Relief] 50 mcg/actuation spray,suspension 1 spray intranasal BID Qty: 48 0RF Rx Instructions: administer into each nostril loratadine [Claritin] 10 mg tablet 10 mg PO DAILY Qty: 90 0RF Adults Multivitamin 18 mg iron-400 mcg-25 mcg Tablet 1 tablet PO DAILY allopurinol 300 mg tablet See Rx Instructions .ROUTE .COMPLEX Qty: 90 2RF Dose Instruction: TAKE 1 TABLET BY MOUTH ONCE A DAY Rx Instructions: TAKE 1 TABLET BY MOUTH ONCE A DAY pantoprazole [Protonix] 40 mg tablet,delayed release (DR/EC) 40 mg PO DAILY Qty: 90 2RF rosuvastatin [Crestor] 5 mg tablet 5 mg PO DAILY Qty: 90 2RF Follow-up/Referrals: Paul Mcnulty MD [Primary Care Provider] - Time of Disposition: 04:47
[2024-09-24 03:00] VITALS: BP 160/91; PULSE 89; RESP 15; O2SAT 99
[2024-09-24] MEDS: KETOROLAC 30 MG/ML VIAL (*BKC) 15 MG IV PUSH (03:14)
[2024-09-24 03:26] LABS: Add Urine Microscopic? YES; Appearance Urine Clear (Clear); Bacteria Urine None Seen /hpf; Bilirubin Urine Negative (Negative); Blood Urine Negative (Negative); Color Urine Yellow (Yellow); Glucose Urine UA Negative (Negative); Ketones Urine 1+ mg/dL (Negative); Leukocyte Esterase Ur Trace LEU/UL (Negative); Nitrate Urine Negative (Negative); Non Pathogenic Casts 0-2; Protein Urine Trace mg/dL (Negative); RBC Urine 0-2 /hpf (0-2); Specific Grav Ur 1.022 (1.001-1.035); Squamous Epithelial Cell Urine None Seen /hpf (Few); Urobilinogen Urine 0.2 mg/dL (<2.0); WBC Urine 0-5 /hpf (0-3)
[2024-09-24 04:00] VITALS: BP 187/96; PULSE 107; RESP 17; O2SAT 96
[2024-09-24 05:24] VITALS: BP 146/78; PULSE 83; RESP 16; TEMP 36.6; O2SAT 98
== END 2024-09-24 05:26 | disposition home or self-care (01) ==
PROVIDERS: Emergency Provider Student in an Organized Health Care Education/Training Program; PCP Emergency Medicine
DX: E86.0 Dehydration (principal); R11.2 Nausea with vomiting, unspecified; N28.9 Disorder of kidney and ureter, unspecified; E11.9 Type 2 diabetes mellitus without complications; E55.9 Vitamin D deficiency, unspecified; E78.5 Hyperlipidemia, unspecified; M10.9 Gout, unspecified; N40.0 Benign prostatic hyperplasia without lower urinary tract symptoms; K21.9 Gastro-esophageal reflux disease without esophagitis; Z79.84 Long term (current) use of oral hypoglycemic drugs; Z79.899 Other long term (current) drug therapy
CPT/HCPCS: 36415; 71045; 74177; 80053; 81001; 85025; 85610; 85730; 93005; 96361; 96374; 96375; 99284; J1885; J2405; J7120; Q9967